=== PATIENT | male | born 1950 ===

== ENCOUNTER 2020-05-01 09:39 | Outpatient (CLI) | payer MEDICARE, SELFPAY ==
--- NOTE | 2020-05-01 09:48 | EST_ITS ---
Patient Info Name: Kathryn Cuevas Age: 69 years : 1950 Gender: Male Ht: 72 in Wt: 180 lbs BSA: 2.04 m2 Exam Date: 05/01/2020 10:07 AM Exam Location: [facility] Stress Patient Status: Outpatient Admit Date: 05/01/2020 Staff Ordering Physician: Veronica Trammell NP Attending Provider: Veronica Trammell NP Exercise Technologist: Pooja Polanco RDCS Exercise Physician: Lokesh Simon DO Exam Type: CA stress test treadmill Study Info Indications R42 - Dizziness and giddiness A treadmill exercise stress test was performed. Summary 1. 1. Negative Mode exercise stress test for ischemic ST changes by ECG criteria. 2. 2. Reduced functional capacity, achieving 6.5 METs of workload. 3. 3. Rapid HR response to exercise achieving 85% MPHR in first 1 minute and 30 seconds of exercise. 4. 4. Baseline hypertension with hypertensive response to exercise. 5. 5. Appropriate HR recovery at 1 minute post exercise. 6. 6. No imaging with stress testing. 7. 7. Patient informed of the above results. Protocol: Mode Stress ECG Details Stage: REST Duration (min): 4 min : 49 sec Speed (mph): 0.0 Grade (%): 0 HR (bpm): 68 SBP (mmHg): 143 DBP (mmHg): 84 METS: --- Stage: REST Duration (min): 7 min : 9 sec Speed (mph): 0.0 Grade (%): 0 HR (bpm): 75 SBP (mmHg): 143 DBP (mmHg): 84 METS: --- Stage: STAGE 1 Duration (min): 1 min : 0 sec Speed (mph): 1.7 Grade (%): 10 HR (bpm): 115 SBP (mmHg): 143 DBP (mmHg): 84 METS: --- Stage: STAGE 1 Duration (min): 2 min : 0 sec Speed (mph): 1.7 Grade (%): 10 HR (bpm): 137 SBP (mmHg): 143 DBP (mmHg): 84 METS: --- Stage: STAGE 1 Duration (min): 3 min : 0 sec Speed (mph): 1.7 Grade (%): 10 HR (bpm): 138 SBP (mmHg): 198 DBP (mmHg): 86 METS: --- Stage: STAGE 2 Duration (min): 1 min : 0 sec Speed (mph): 2.5 Grade (%): 12 HR (bpm): 149 SBP (mmHg): 198 DBP (mmHg): 86 METS: --- Stage: STAGE 2 Duration (min): 1 min : 0 sec Speed (mph): 2.5 Grade (%): 12 HR (bpm): 149 SBP (mmHg): 198 DBP (mmHg): 86 METS: --- Stage: RECOVERY Duration (min): 0 min : 59 sec Speed (mph): 0.0 Grade (%): 0 HR (bpm): 124 SBP (mmHg): 199 DBP (mmHg): 80 METS: --- Stage: RECOVERY Duration (min): 1 min : 59 sec Speed (mph): 0.0 Grade (%): 0 HR (bpm): 98 SBP (mmHg): 199 DBP (mmHg): 80 METS: --- Stage: RECOVERY Duration (min): 2 min : 59 sec Speed (mph): 0.0 Grade (%): 0 HR (bpm): 83 SBP (mmHg): 214 DBP (mmHg): 82 METS: --- Stage: RECOVERY Duration (min): 3 min : 59 sec Speed (mph): 0.0 Grade (%): 0 HR (bpm): 80 SBP (mmHg): 214 DBP (mmHg): 82 METS: --- Stage: RECOVERY Duration (min): 4 min : 59 sec Speed (mph): 0.0 Grade (%): 0 HR (bpm): 77 SBP (mmHg): 159 DBP (mmHg): 85
== END 2020-05-01 09:40 | disposition home or self-care (01) ==
LOC: ANHCARD 09:43
PROVIDERS: PCP Family Medicine; Visit Provider Nurse Practitioner
DX: R42 Dizziness and giddiness (principal)
CPT/HCPCS: 93017

== ENCOUNTER 2020-06-03 09:12 | Outpatient (CLI) | payer MEDICARE, SELFPAY ==
--- NOTE | 2020-07-09 17:17 | WPDHOMESLEEP ---
Sleep Study - Home Unattended Date of Study: 06/03/20 Ordering Provider: Veronica Trammell NP Interpreting Physician: Nereida Morillo MD Home Sleep Study Type: Apnea Link Air Height: 1.85 m Weight: 81.647 kg Body Mass Index: 23.7 Neck Circumference (inches): 16.5 [place]: 11 Reason for Sleep Study Excessive daytime sleepiness, unintended naps Sleep History Kathryn Cuevas is a 70 year old man who for the last year has started falling asleep in the afternoon and early evening unintentionally. He may sleep up to 6 hours during the day. Overall he feels worse after having slept during the day. He previously never napped during the day. Napping in the day causes him to awake often at night. He wakes up daily with headaches, neck stiffness, and constant fatigue. This is exacerbating his mental health issues. He has difficulty waking at the correct time in the morning. He rarely snores and it is rarely loud enough that others complain about it. He never awakens at night with heartburn, belching or coughing. He does not awaken from sleep feeling short of breath. He occasionally has trouble sleep with a cold. He does not wake up gasping for breath at night. He rarely has breathing problems at night observed by others. He does not sweat excessively at night. He rarely notices his heart pounding or beating irregularly night. He frequently falls asleep during the day, frequently involuntarily but never while driving and never while exerting physical effort. He does not have loss of muscle tone with strong emotion. He occasionally has daytime difficulties due to excessive sleepiness. He does not feel paralyzed on waking or falling asleep. He occasionally has vivid dreamlike scenes upon awakening or falling asleep. He is never a freight to go to sleep. He denies nightmares. He frequently remembers his dreams. He rarely has racing thoughts through his mind. He frequently feels sad, depressed and anxious. He came in muscular tension. He does not notice parts of his body jerking. He does not kick at night. He rarely has crawling and aching feelings in his legs at night. He does not have any kind of leg pain during the night. He does not have morning jaw pain and does not grind his teeth during sleep. He occasionally has bothered by pain during the day. He never is awakened by pain during the night. He occasionally wakes up feeling stiff in the morning, frequently with sore or achy muscles. He frequently wakes up with pain in his neck and spine. He has tremors, memory problems, concentration difficulties, fatigue, dizziness, daily morning headaches and depression. Normal bedtime has been midnight falling asleep within 5 minutes typically waking several times at night. When he wakes up he stays awake for 5 minutes. He will change position and reposition his pillow. He wakes in the morning at 8:00 a.m.. He does take naps as described in the afternoon and early evening. A short nap is not refreshing. He is usually drowsy on waking for an hour. He feels better in the afternoon compared other times of day. Habits: Never smoked tobacco. Caffeine 2 servings a day. Alcohol 1 per day. No recreational drugs. [facility] Past Medical History Medical History (Updated 07/09/20 @ 17:25 by Nereida Morillo MD) Attention deficit disorder (ADD) without hyperactivity Essential (primary) hypertension History of prostate cancer Hyperlipidemia Major depressive disorder, recurrent, unspecified Vitamin D deficiency, unspecified Surgical History Surgical History Status post radical cystoprostatectomy 2008 Family History Family History Father Family history of diabetes mellitus in first degree relative Other Hypertension Social History Social History Smoking status: Never smoker Alcohol int
[2020-07-09 17:29] VITALS: BMI 23.7
== END 2020-06-03 09:13 | disposition home or self-care (01) ==
LOC: ANHCSM 09:14
PROVIDERS: PCP Family Medicine; Visit Provider Nurse Practitioner
DX: G47.33 Obstructive sleep apnea (adult) (pediatric) (principal)
CPT/HCPCS: 95806

== ENCOUNTER 2021-05-28 09:31 | Outpatient (CLI) | payer MEDICARE, SELFPAY ==
--- NOTE | ~2021-05-28 | US_ITS ---
EXAMINATION: US carotid duplex BI DATE: 05/28/2021 11:36 INDICATION: Dizziness and giddiness. TECHNIQUE: Grayscale, color Doppler, and pulsed Doppler images of the cervical carotid arteries were obtained. The degree of vessel stenosis is placed in one of the following categories: normal, <50%, 5 0-69%, >=70% but less than near-occlusion, near-occlusion, or total occlusion. Note that percent sten osis relative to normal distal artery lumen diameter is indirectly measured from velocity measurement s as described by Reid, et al. Radiology 2003; 229:[id number]. COMPARISON: None. FINDINGS: RIGHT: The right common carotid artery (CCA) peak systolic velocity (PSV) is 100 cm/s. The right internal ca rotid artery (ICA) PSV is 70 cm/s. The right ICA end-diastolic velocity (EDV) is 22 cm/s. The right I CA/CCA PSV ratio is 1.4. Grayscale and color Doppler images yield an estimate of <50% diameter reduct ion from small amount of plaque in the ICA. The external carotid artery (ECA) PSV is 129 cm/s. There is antegrade flow in the right vertebral artery. LEFT: The left CCA PSV is 82 cm/s. The left ICA PSV is 91 cm/s. The left ICA EDV is 20 cm/s. The left ICA/C CA PSV ratio is 0.9. Grayscale and color Doppler images yield an estimate of <50% diameter reduction from minimal plaque in the ICA. The ECA PSV is 98 cm/s. There is antegrade flow in the left vertebral artery. IMPRESSION: 1. <50% stenosis in the right internal carotid artery. 2. <50% stenosis in the left internal carotid artery. Reviewed, dictated and finalized at location A. [facility]NER
--- NOTE | 2021-05-28 10:00 | ECHO_ITS ---
Patient Info Name: Kathryn Cuevas Age: 71 years : 1950 Gender: Male Ht: 73 in Wt: 178 lbs BSA: 2.04 m2 HR: 52 bpm BP: 134 / 84 mmHg Technical Quality: Fair Exam Date: 05/28/2021 10:20 AM Exam Location: [facility] Patient Status: Outpatient Admit Date: 05/28/2021 Staff Ordering Physician: Kelly Rosas NP Bench Assembler Battery: Maritza Keen RDCS Attending Provider: Kelly Rosas NP Referring Physician: Alison DAY; Exam Type: CA echo doppler color flow Study Info Indications - DIZZINESS GIDDINESS Complete two-dimensional, color flow and Doppler transthoracic echocardiogram is performed. Summary 1. Complete two-dimensional, color flow and Doppler transthoracic echocardiogram is performed. 2. Left ventricular chamber dimension is normal. 3. Left ventricular systolic function is normal, estimated at 60-65%. 4. The left ventricular diastolic function is grade II diastolic dysfunction. 5. E/e' 11 is mildly elevated. 6. Left atrial chamber dimension is mildly enlarged. 7. There is mild to moderate mitral valve regurgitation. 8. There is mild tricuspid valve regurgitation. 9. No pulmonary hypertension, estimated pulmonary arterial systolic pressure is 32 mmHg. Left Ventricle E/e' 11 is mildly elevated. Left ventricular chamber dimension is normal. Left ventricular systolic function is normal, estimated at 60-65%. The left ventricular diastolic function is grade II diastolic dysfunction. Right Ventricle Right ventricular chamber dimension is normal. Right ventricular systolic function is normal. Left Atria Left atrial chamber dimension is mildly enlarged. Right Atria Right atrial chamber dimension is normal. Aortic Valve The aortic valve is trileaflet. There is no aortic valve stenosis. There is no aortic valve regurgitation. Pulmonic Valve There is no pulmonic regurgitation. Mitral Valve There is no mitral valve stenosis. There is mild to moderate mitral valve regurgitation. Tricuspid Valve There is mild tricuspid valve regurgitation. No pulmonary hypertension, estimated pulmonary arterial systolic pressure is 32 mmHg. Pericardium/Pleural There is no pericardial effusion. Inferior Vena Cava Normal inferior vena cava with >50% collapse upon inspiration consistent with normal right atrial pressure, 5 mmHg. Aorta The aortic root size at the sinus of Valsalva is normal. Left Ventricular Outflow Tract Name Value Normal LVOT 2D LVOT Diameter 2.0 cm LVOT Doppler LVOT Peak Gradient 5 mmHg LVOT Mean Gradient 3 mmHg LVOT VTI 23 cm LVOT VTI/AV VTI Ratio 0.8 LVOT Stroke Volume 72 ml LVOT CO 14.9 l/min LVOT CI 7.3 l/min/m2 Pulmonic Valve Name Value Normal PV Dop
== END 2021-05-28 09:32 | disposition home or self-care (01) ==
LOC: ANHCARD 09:33
PROVIDERS: PCP Family Medicine; Visit Provider Nurse Practitioner Family
DX: R42 Dizziness and giddiness (principal); I65.23 Occlusion and stenosis of bilateral carotid arteries; I34.0 Nonrheumatic mitral (valve) insufficiency; I36.1 Nonrheumatic tricuspid (valve) insufficiency
CPT/HCPCS: 93306; 93880

== ENCOUNTER 2022-01-22 07:51 | Outpatient (CLI) | payer MEDICARE, SELFPAY ==
--- NOTE | 2022-02-22 21:41 | WPDSLEEPSTUD ---
Sleep Study Date of Study: 01/22/22 Ordering Provider: Nereida Morillo MD Interpreting Physician: Nereida Morillo MD Sleep Study Type: Split Polysomnogram Height: 1.85 m Weight: 82.1 kg Body Mass Index: 23.8 Neck Circumference (inches): 16.5 [place]: 6 Reason for Sleep Study * Hypersomnia * 06/03/2020 [facility] -?home sleep test on June 03, 2020 shows at least mild obstructive sleep apnea with an AHI of 7.2,?desaturation to 87% and snoring.? The patient has?hypertension and depression.?He did not choose to be treated at the time, and the interval is too long at this point to get PAP therapy. * 05/28/2021 echo : ?Left ventricular systolic function is normal, estimated at 60-65%. Sleep History Kathryn Cuevas is a 71-year-old man with a history of hypersomnia. He reports that he can fall asleep any time that he is seated and especially if he reclines. He had a home sleep test in June 03, 2020 which showed mild obstructive sleep apnea. He did not decide to get treated at the time. He has had worsening cognitive function. He has both memory loss and difficulty focusing. He decided that he does want to have treatment to see if this can help his brain function.? He may nap up to 6 hours during the day.? Overall he feels worse after having slept during the day.? He previously never napped during the day.? Napping in the day causes him to awake often at night.? He wakes up daily with headaches, neck stiffness, and constant fatigue.? This is exacerbating his mental health issues.? He has difficulty waking at the correct time in the morning.? He rarely snores and it is rarely loud enough that others complain about it.? He never awakens at night with heartburn, belching or coughing.? He does not awaken from sleep feeling short of breath.? He occasionally has trouble sleep with a cold.? He does not wake up gasping for breath at night.? He rarely has breathing problems at night observed by others.? He does not sweat excessively at night.? He rarely notices his heart pounding or beating irregularly night.? He frequently falls asleep during the day, frequently involuntarily but never while driving and never while exerting physical effort.? He does not have loss of muscle tone with strong emotion.? He occasionally has daytime difficulties due to excessive sleepiness.? He does not feel paralyzed on waking or falling asleep.? He occasionally has vivid dreamlike scenes upon awakening or falling asleep.? He is never a freight to go to sleep.? He denies nightmares.? He frequently remembers his dreams.? He rarely has racing thoughts through his mind.? He frequently feels sad, depressed and anxious.? He came in muscular tension.? He does not notice parts of his body jerking.? He does not kick at night.? He rarely has crawling and aching feelings in his legs at night.? He does not have any kind of leg pain during the night.? He does not have morning jaw pain and does not grind his teeth during sleep.? He occasionally has bothered by pain during the day.? He never is awakened by pain during the night.? He occasionally wakes up feeling stiff in the morning, frequently with sore or achy muscles.? He frequently wakes up with pain in his neck and spine.? He has tremors, memory problems, concentration difficulties, fatigue, dizziness, daily morning headaches and depression. Normal bedtime has been midnight falling asleep within 5 minutes typically waking several times at night.? When he wakes up he stays awake for 5 minutes.? He will change position and reposition his pillow.? He wakes in the morning at 8:00 a.m..? He does take naps as described in the afternoon and early evening.? A short nap is not refreshing.? He is usually drowsy on waking for an hour.? He feels better in the afternoon compared other times of day. Habits: ? Never smoked tobacco.? Caffeine 2 servings a day.? Alcohol 1 per day.? No recreational drugs. PMFSH Past Medical History Medical History (Reviewed 01/22/22 @ 11
[2022-02-24 15:56] VITALS: BMI 23.8
== END 2022-01-23 06:59 | disposition home or self-care (01) ==
LOC: ANHCSM 07:53
PROVIDERS: PCP Family Medicine; Visit Provider Internal Medicine Critical Care Medicine
DX: G47.19 Other hypersomnia (principal); G47.33 Obstructive sleep apnea (adult) (pediatric)
CPT/HCPCS: 95810; 95811

== ENCOUNTER → 2023-06-07 09:21 | Outpatient (CLI) | payer MEDICARE, SELFPAY ==
--- NOTE | ~2023-06-07 | CT_ITS ---
Non-contrast Head CT History: Amnesia Technique: Axial non-contrast imaging of the brain was performed. Dose reduction technique was used on this scan by utilizing automated exposure control and iterative reconstruction technique. The dose -length product (DLP) was 726.40 mGy-cm. Findings: There is no evidence of intracranial hemorrhage, mass lesion, or acute infarct. Brain par enchyma appears normal. The ventricles and subarachnoid spaces are normal in size. The calvarium ap pears normal. The visualized paranasal sinuses and mastoid air cells are clear. Impression: No significant abnormality seen. Reviewed, dictated and finalized at location . NG ROOM ATTENDANT CAFETERIA Impression: No significant abnormality seen.
== END ==
PROVIDERS: PCP Nurse Practitioner Family; Visit Provider Nurse Practitioner Family
DX: R41.3 Other amnesia (principal)
CPT/HCPCS: 70450

== ENCOUNTER 2024-06-12 12:07 | Observation (INO) | payer MEDICARE, OTHER, SELFPAY ==
[2024-06-12] VITALS (10 sets, daily range): BP systolic 104–129; BP diastolic 61–80; PULSE 51–90; RESP 14–16; TEMP 36.3–36.6; O2SAT 99–100; BMI 22.5; BMI 22.8
--- NOTE | ~2024-06-12 | XR_ITS ---
EXAMINATION: XR chest 2V DATE: 06/12/2024 12:47 INDICATION: Chest pain and shortness of breath TECHNIQUE: PA and lateral views of the chest were obtained. COMPARISON: Chest radiograph dated 08/02/2011 FINDINGS: The lungs are clear with no focal airspace opacities, pulmonary edema, pleural effusion or pneumothor ax. The cardiomediastinal silhouette is normal. Postoperative change of the lower cervical anterior s omari fusion with interbody bone graft cage and anterior plate-screw fixation. IMPRESSION: 1. No acute cardiopulmonary disease. Reviewed, dictated and finalized at location B. [employer]
--- NOTE | 2024-06-12 12:14 | ECG_ITS ---
Test Date: 2024-06-12 12:24:35 Measurements Intervals [place] Rate: 59 P: 48 CT: 176 QRS: 43 QRSD: 82 T: 81 QT: 358 QTc: 356 Interpretive Statements SINUS BRADYCARDIA NONSPECIFIC T-WAVE ABNORMALITY No previous ECG available for comparison Electronically Signed On 06-12-2024 15:33:44 COOKIE PADDER by Anthony Naylor M.D.
[2024-06-12 12:40] LABS: Basophils Absolute Auto 0.1 K/mm3 (0.0-0.1); Basophils Percent Auto 0.9 % (0.2-1.2); Eosinophils Absolute Auto 0.4 K/mm3 (0-0.3); Eosinophils Percent Auto 5.1 % (0-4.4); Hematocrit 42.9 % (42.0-52.0); Hemoglobin 15.2 g/dL (14.0-18.0); Immature Granulocyte Absolute 0.02 K/mm3 (0.00-0.031); Immature Granulocyte Percent A 0.3 % (0-0.5); Lymphocytes Absolute Auto 2.17 K/mm3 (0.9-3.2); Mean Corpuscular HGB Conc 35.4 g/dl (32-36); Mean Platelet Volume 9.8 fl (7.4-10.4); Monocytes Absolute Auto 0.6 K/mm3 (0.1-0.6); Monocytes Percent Auto 8.6 % (2.6-8.5); Neutrophils Absolute Auto 3.8 K/mm3 (1.3-6.7); Neutrophils Percent Auto 54.1 % (45.5-73.1); Platelet Count Result 217 k/mm3 (150-375); Red Blood Count 4.47 M/mm3 (4.6-6.20); Red Cell Distribution Width 11.7 % (11.5-14.5)
[2024-06-12 12:50] LABS: Alanine Aminotransferase 24 U/L (6-50); Albumin Level 4.5 g/dL (3.5-5.1); Alkaline Phosphatase 78 U/L (38-126); Anion Gap 8 mmol/L (4-12); Aspartate Amino Transferase 32 U/L (17-59); Bilirubin,Total 0.9 mg/dL (0.2-1.3); Blood Urea Nitrogen 16 mg/dL (9-20); Calcium 9.3 mg/dL (8.4-10.2); Carbon Dioxide 31 mmol/L (22-30); Chloride 103 mmol/L (98-107); Estimated CRCL calculation 76 ml/min; Estimated Glomerular Filt Rate > 60; Glucose 120 mg/dL (65-110); Lipase 92 U/L (23-300); Potassium 4.4 mmol/L (3.4-5.0); Sodium 142 mmol/L (137-145)
[2024-06-12 12:58] LABS: Prothrombin Time 13.6 Seconds (11.1-14.7)
[2024-06-12 12:59] LABS: Partial Thromboplastin Time 25.7 Seconds (22.3-36.8)
[2024-06-12 13:01] LABS: Troponin I < 0.012 ng/mL (0.000-0.034)
--- NOTE | 2024-06-12 15:00 | ECG_ITS ---
Test Date: 2024-06-12 15:05:51 Measurements Intervals [place] Rate: 67 P: 16 MO: 176 QRS: 17 QRSD: 86 T: 67 QT: 390 QTc: 414 Interpretive Statements SINUS RHYTHM NONSPECIFIC T-WAVE ABNORMALITY Compared to ECG 06/12/2024 12:24:35 NO SIGNIFICANT CHANGES Electronically Signed On 06-12-2024 15:38:36 DRAFTER PATENT by Anthony Naylor M.D.
[2024-06-12 15:45] LABS: Troponin I < 0.012 ng/mL (0.000-0.034)
--- NOTE | 2024-06-12 15:49 | ED_ITS ---
HPI - Chest Pain General Chief Complaint: Chest Pain Stated Complaint: i think i had a heart attack tuesday Time Seen by Provider: 06/12/24 14:45 Source: patient and family Mode of arrival: ambulatory Limitations: no limitations History of Present Illness HPI narrative: Patient with history of covid with sequela/complications/long covid (had covid toes), COPD (not on supplemental O2) and pneumonia presents with concern he had a heart attack on Tuesday, 06/10. States was shoveling snow and felt like he was being hit with a hammer in the middle of his chest associated with intense difficulty breathing. States it was the worst pain he had ever experienced. He stopped shoveling snow but the pain did persist throughout the evening and overnight and into Tuesday. Then resolved without recurrence. Delayed presentation because he thought it might be related to his long covid. In addition, he was recently diagnosed with Alzheimers within the last 3-4 weeks and this new health information has been hard for him to process given he worked so hard for so long.... PCP Lluvia. They took a home covid test and it was negative. When he told his sister, a nurse, about his symptoms however, she was concerned and advised he present for cardiac work up. States this has never happened before. Saw a analysis tester many years ago. [place] short of breath during the incident, difficult to get air in. No nausea/vomiting or diaphroesis. No chest pain now. No recent cough. No edema. Had a stress test years ago, no previous cardiac cath. = Cardiac risk factors: + HTN (on valsartan), + HLD. No prior AR/CVA, non diabetic. Non smoker. Not obese. No family history of cardiac <65yo. = also notes that over the summer over a period of several months he had 4 instances of syncope, unclear etiology, no work up for this. Related Data Home Medications ?Medication ?Instructions ?Recorded ?Confirmed ?Last Taken ?Type duloxetine 60 mg capsule,delayed 60 mg PO DAILY 01/09/24 06/12/24 06/12/24 08:00 History release 60 mg donepezil 5 mg tablet 5 mg PO DAILY 06/12/24 06/12/24 06/12/24 08:00 History 5 mg Allergies Allergy/AdvReac Type Severity Reaction Status Date / Time Penicillins Allergy Mild stiff Verified 06/12/24 12:09 joints PMFSH Past Medical History Medical History Alzheimer disease COVID toes COVID-19 long hauler Pneumonia COPD (chronic obstructive pulmonary disease) Prostate cancer Memory loss Erectile dysfunction Lumbar back pain with radiculopathy affecting right lower extremity Attention deficit disorder (ADD) without hyperactivity Essential (primary) hypertension Hyperlipidemia Major depressive disorder, recurrent, unspecified Vitamin D deficiency, unspecified Surgical History Surgical History (Updated 06/12/24 @ 23:19 by Mary Jo Sin PA-C) History of radical prostatectomy (2008) History of cervical discectomy Family History Family History Father Family history of diabetes mellitus in first degree relative Other Hypertension Social History Social History (Updated 06/12/24 @ 23:20 by Mary Jo Sin PA-C) Social History: Surrogate medical decision maker: Alanna Floyder, spouse. Code status: Full code. Smoking status: Never smoker Alcohol intake: never Substance use: never Substance use type: does not use Do You Feel Safe in your Home?: Yes Lack of Transportation: No Lack of Food: Never True Current Housing: I Have Housing Concerned About Future Housing: No Difficulty Paying Gas/Electric Bills: No Difficulty Paying for Meds: No Currently Unemployed: No Education: Master's Degree or Higher Difficulty w/ Childcare or Family Care: No Living arrangements: with family Occupation/Education: retired Spiritual care concerns: No Agree to blood products: Yes Exam 2 Narrative: GENERAL: Well-appearing, well-nourished, and in no acute distress. HEAD: Normocephalic, atraumatic. EYES: Non injected, non icteric ENT: Nares clear, no rhinorrhea or epistaxis. NECK: Supple. CHEST: Speaking in full sentences. No respiratory distress. Lungs clear to auscultation without wheezes, crackles, bronchospasm. HEART: Regular rate and rhythm. . ABDOMEN: Soft, nondistended. EXTREMITIES: Normal range of motion. No lower extremity edema. SKIN: Warm, dry, no rash. NEURO: No focal deficits. Alert and oriented x3. PSYCH: Congruent mood and affect, slightly flat. Speaks at appropriate volume/rate. Minimal facial expressions. Course Vital Signs Vital signs: Vital Signs Temperature 97.9 F 06/12/24 12:24 Pulse Rate 80 06/12/24 12:24 Respiratory Rate 14 06/12/24 12:24 Blood Pressure 104/71 06/12/24 12:24 Pulse Oximetry 100 06/12/24 12:24 Temperature 98 F 06/13/24 07:35 Pulse Rate 70 06/13/24 08:00 Respiratory Rate 14 06/13/24 07:35 Blood Pressure 121/82 06/13/24 07:35 Pulse Oximetry 100 06/13/24 07:35 Oxygen Delivery Room Air 06/13/24 08:00 MDM - Chest Pain MDM Narrative Medical decision making narrative: Patient presents with concern he had a heart attack on Tuesday06/10/24. He was shoveling snow and experienced intense chest pain in the middle of his chest associated with significant shortness of breath. Lasted into the evening and the next morning then resolved without recurrence. History of COPD, covid long haul, and recent diagnosis of Alzheimer, all contributing to delay in presentation. In the emergency department they are afebrile with vital signs within normal limits. HEART SCORE History 2 highly suspicious 1 moderately suspicious 0 slightly suspicious History score [address] depression/elevation not due to LBBB, LVH, or digoxin [address] depression but LBBB, LVH, nonspecific repolarization changes 0 normal ECG score 1 (T wave inversions) Age 2 >/= 65 1 45-64 0 <45 Age score 2 Risk factors (HTN, hypercholesterolemia, DM, obesity with BMI >30, current smoker or cessation </=3mo), positive fam hx with parent or sibling with CVD before age 65, atherosclerotic disease (prior AR, PCI/CABG, CVA/TIA, or peripheral arterial disease) 2 >/= 3 risk factors or history of atherosclerotic dz 1 - 1-2 risk factors 0 no known risk factors Risk factor score 1 (HTN, HLD) Initial Troponin 2 >3 times normal limit 1 1-3 times normal limit 0 less than or equal to normal limit Troponin score 0. Total HEART Score 5 , high risk, 12-65% 30 day MACE. 2nd troponin negative. Dimer negative. I did discuss with patient the recommendation and advised the need for admission. He does oblige and verified understanding. Discussed patient with on-call hospitalist MILO English; will be IMU for high HEART score. In addition, given his risk, he will be made NPO at midnight in consideration of potential cardiac catheterization although will defer starting heparin at this time. Patient discussed with on-call non historic clothing and costume maker Dr Neal at approximately 17:20. Differential Diagnosis Differential diagnosis: Likely stable angina, unstable angina pectoris, atypical chest pain, st elevation myocardial infarction, costochondritis, chest pain, biliary colic and other (COPD exacerbation (resolved), bronchospasm/cold exposure bronchospasm (resolved); anxiety) Lab Data Attestation: I reviewed the patient's lab results. 06/12/24 12:27 06/13/24 03:49 Labs: Lab Results 06/12/24 06/12/24 06/12/24 Range/Units 12:26 12:27 15:20 WBC 7.0 (4.5-10.0) K/mm3 RBC 4.47 L (4.6-6.20) M/mm3 Hgb 15.2 (14.0-18.0) g/dL Hct 42.9 (42.0-52.0) % MCV 96.0 (80-100) fl MCH 34.0 (26-34) pg MCHC 35.4 (32-36) g/dl RDW 11.7 (11.5-14.5) % Plt Count 217 (150-375) k/mm3 MPV 9.8 (7.4-10.4) fl Immature Gran % (Auto) 0.3 (0-0.5) % Neut % (Auto) 54.1 (45.5-73.1) % Lymph % (Auto) 31.0 (18.3-44.2) % [place] % (Auto) 8.6 H (2.6-8.5) % Eos % (Auto) 5.1 H (0-4.4) % Baso % (Auto) 0.9 (0.2-1.2) % Lymph # (Auto) 2.17 (0.9-3.2) K/mm3 [place] # (Auto) 0.6 (0.1-0.6) K/mm3 Eos # (Auto) 0.4 H (0-0.3) K/mm3 Baso # (Auto) 0.1 (0.0-0.1) K/mm3 Abs Immat Gran (auto) 0.02 (0.00-0.031) K/mm3 Absolute Neuts (auto) 3.8 (1.3-6.7) K/mm3 Absolute Nucleated RBC 0.000 (0.0-0.012) K/mm3 Nucleated RBC % 0.0 (0.0-0.2) % PT 13.6 (11.1-14.7) Seconds INR 1.0 APTT 25.7 (22.3-36.8) Seconds D-Dimer 0.36 (<0.48) ug/mL Sodium 142 (137-145) mmol/L Potassium 4.4 (3.4-5.0) mmol/L Chloride 103 (98-107) mmol/L Carbon Dioxide 31 H (22-30) mmol/L Anion Gap 8 (4-12) mmol/L BUN 16 (9-20) mg/dL Creatinine 0.82 (0.7-1.3) mg/dL Estim Creat Clear Calc 76 ml/min Estimated GFR > 60 (59 - ) Glucose 120 H (65-110) mg/dL Calcium 9.3 (8.4-10.2) mg/dL Magnesium 1.9 (1.6-2.3) mg/dL Total Bilirubin 0.9 (0.2-1.3) mg/dL AST 32 (17-59) U/L ALT 24 (6-50) U/L Alkaline Phosphatase 78 (38-126) U/L Troponin I < 0.012 < 0.012 (0.000-0.034) ng/mL Total Protein 7.0 (6.3-8.2) g/dL Albumin 4.5 (3.5-5.1) g/dL Lipase 92 (23-300) U/L Imaging Data Radiologist's impression: Impressions Chest X-Ray 06/12/24 12:50 IMPRESSION: 1. No acute cardiopulmonary disease. ECG Data EKG #1: Attestation: I personally reviewed and interpreted this ECG as follows: ECG completion date: 06/12/24 ECG completion time: 12:24 Prior ECG tracings: available for review (from 10/07/2014 (approximately a decade ago)) Interpretation: Sinus bradycardia at a rate of 59 beats per minute. ND interval 176. QRS 82. QT/QTC 358/57. Good R-wave progression across the precordial leads. Patient does have T-wave inversion versus biphasic T-waves in V4 as well as a T-wave inversion in V5 and V6. These are new. EKG #2: Attestation: I personally reviewed and interpreted this ECG as follows: ECG completion date: 06/12/24 ECG completion time: 15:56 Interpretation: Normal sinus rhythm at a rate of 67 beats per minute. ND interval 176. QRS 86. QT/QTC 390/406. Patient has biphasic T-wave in V4 and V5 as well as V6. Good R-wave progression across the precordial leads. Discharge Plan Discharge Clinical Impression: Angina pectoris syndrome Patient Disposition: Still a Patient Condition: Stable
[2024-06-12 16:06] LABS: Magnesium 1.9 mg/dL (1.6-2.3)
[2024-06-12 16:28] LABS: D Dimer 0.36 ug/mL (<0.48)
--- NOTE | 2024-06-12 18:00 | PC.NURSE ---
lab called to add on ordered A1C.
--- NOTE | 2024-06-12 18:45 | P.HP_ITS ---
H&P: HPI History of Present Illness Date/Time: 06/12/24 18:45 Chief Complaint: I think I had a heart attack on Tuesday. Narrative: This is a pleasant 74-year-old male with hypertension and hyperlipidemia who pre sented to the emergency department via private vehicle for evaluation; I think I had a heart attack on Tuesday. The patient provides the following history. Tuesday afternoon he was shoveled and did not have any issues. That night he was awakened from sleep with a heaviness in the substernal region associated with shortness of breath. It lasted for several hours before resolving without intervention. He has never had similar symptoms and he has not had a recurrence of his symptoms since that time. He apparently spoke with his and children about it today in the encouraged him to come in for evaluation. Again, he denies that the symptoms occurred while he was shoveling and he has not had any exertional chest pain. He denies indigestion, bloating, belching, nausea, and vomiting. He also denies syncope, near syncope, cough, lower extremity edema, and calf pain. In the ED: He was afebrile on arrival with stable vital signs. CMP and CBC were pretty unremarkable though is random glucose was a bit elevated at 120. Initial troponin was negative. EKG showed sinus bradycardia nonspecific T-wave abnormalities. Chest x-ray was clear. He was given aspirin 324 mg is being admitted in this setting for close monitoring and Cardiology consultation. Review of Systems Review of Systems: 12 systems were reviewed and are negative except for as per HPI. [facility] Past Medical History Medical History Prostate cancer Memory loss Erectile dysfunction Lumbar back pain with radiculopathy affecting right lower extremity Attention deficit disorder (ADD) without hyperactivity Essential (primary) hypertension Hyperlipidemia Major depressive disorder, recurrent, unspecified Vitamin D deficiency, unspecified Surgical History Surgical History (Updated 06/12/24 @ 23:19 by Mary Jo Sin PA-C) History of radical prostatectomy (2008) History of cervical discectomy Family History Family History Father Family history of diabetes mellitus in first degree relative Other Hypertension Social History Social History (Updated 06/12/24 @ 23:20 by Mary Jo Sin PA-C) Social History: Surrogate medical decision maker: Alanna Cuevas, spouse. Code status: Full code. Smoking status: Never smoker Alcohol intake: never Substance use: never Substance use type: does not use Do You Feel Safe in your Home?: Yes Lack of Transportation: No Lack of Food: Never True Current Housing: I Have Housing Concerned About Future Housing: No Difficulty Paying Gas/Electric Bills: No Difficulty Paying for Meds: No Currently Unemployed: No Education: Master's Degree or Higher Difficulty w/ Childcare or Family Care: No Living arrangements: with family Occupation/Education: retired Spiritual care concerns: No Agree to blood products: Yes Meds Home Medications and Allergies Home Medications ?Medication ?Instructions ?Recorded ?Confirmed ?Type valsartan 160 mg tablet 160 mg PO DAILY #90 tabs 10/10/23 06/12/24 Rx duloxetine 60 mg capsule,delayed 60 mg PO DAILY 01/09/24 06/12/24 History release atorvastatin 20 mg tablet 20 mg PO QHS #90 tabs 01/23/24 06/12/24 Rx donepezil 5 mg tablet 5 mg PO DAILY 06/12/24 06/12/24 History Allergies Allergy/AdvReac Type Severity Reaction Status Date / Time Penicillins Allergy Mild stiff Verified 06/12/24 12:09 joints Vital Signs Vital Signs - 24 hr 06/12/24 12:24 06/12/24 14:21 06/12/24 14:24 Temperature 97.9 F Pulse Rate 80 69 Respiratory Rate 14 16 Blood Pressure 104/71 124/74 Pulse Oximetry 100 100 Oxygen Delivery Room Air 06/12/24 17:58 Temperature Pulse Rate 70 Respiratory Rate 16 Blood Pressure 117/80 Pulse Oximetry 100 Oxygen Delivery Exam Narrative: General: Well-developed, nontoxic-appearing male in the semi-Chambers position in bed. Weight: 70.5 kg. BMI: 22.8. HEENT: PERRL, EOMI. Sclera anicteric. Oral mucosa moist. Oropharynx clear. Neck: Supple. Respiratory: Lungs are clear to auscultation bilaterally. Cardiovascular: Regular rate and rhythm with S1-S2. Chest: No tenderness to palpation over the chest wall. Gastrointestinal: Abdomen is soft, nontender, and nondistended with positive bowel sounds. Skin: Warm and dry. No rash or lesions on limited exam. Extremities: No cyanosis, clubbing, or edema. Radial and pedal pulses intact. Neurological: Alert. Cranial nerves 2-12 are grossly intact. No gross focal deficits to casual conversation. Psychiatric: Pleasant and cooperative with normal mood and affect. H&P: Results Labs Labs: Short CBC 06/12/24 Range/Units 12:27 WBC 7.0 (4.5-10.0) K/mm3 Hgb 15.2 (14.0-18.0) g/dL Hct 42.9 (42.0-52.0) % Plt Count 217 (150-375) k/mm3 BMP 06/12/24 12:27 Sodium 142 Potassium 4.4 Chloride 103 Carbon Dioxide 31 H BUN 16 Creatinine 0.82 Glucose 120 H Calcium 9.3 Cardiac Enzymes 06/12/24 06/12/24 Range/Units 12:27 15:20 Troponin I < 0.012 < 0.012 (0.000-0.034) ng/mL Liver Function 06/12/24 Range/Units 12:27 Total Bilirubin 0.9 (0.2-1.3) mg/dL AST 32 (17-59) U/L ALT 24 (6-50) U/L Alkaline Phosphatase 78 (38-126) U/L Albumin 4.5 (3.5-5.1) g/dL Impressions Chest X-Ray 06/12/24 12:50 IMPRESSION: 1. No acute cardiopulmonary disease. Assessment and Plan Assessment and plan (1) Chest pain: Code(s): R07.9 - Chest pain, unspecified Status: Acute (2) Essential (primary) hypertension: Code(s): I10 - Essential (primary) hypertension Status: Chronic (3) Hyperlipidemia: Qualifiers: Hyperlipidemia type: unspecified Qualified Code(s): E78.5 - Hyperlipidemia, unspecified Code(s): E78.5 - Hyperlipidemia, unspecified Status: Chronic Plan The patient presented to the emergency department for evaluation of chest pain as detailed in HPI. Labs, imaging, EKG, and all reports were personally reviewed. Initial troponin was normal an EKG shows some nonspecific findings. this story provided to me is atypical for cardiac pain as he was able to shovel that day without issue. He was awakened from sleep that night with the pain which could be musculoskeletal in etiology, perhaps costochondritis, from all of the shoveling he had done that day. Pulmonary embolism and GI etiologies seem less likely. Nonetheless he does have risk factors for heart disease in the ED physician consulted Cardiology for their opinion. He will be NPO after midnight for possible stress test tomorrow. Blood pressures were reviewed and they are stable. Check fasting glucose as his random glucose was a bit elevated. His home medications will be reviewed and resumed as appropriate. Findings and treatment plan were discussed with the patient. Questions were solicited and answered to satisfaction. The patient's medical management [facility] Quality VTE Prophylaxis VTE prophylaxis: pharmacologic ordered The patient has been admitted under observation status. Hospitalist MIPS Advance Care Plan I have confirmed that the patient's Advanced Care Plan is present, code status is documented, or surrogate decision maker is listed in patient medical record.: Yes Medication Reconciliation I have utilized all available resources to obtain, update and review the patients current medications (includes all prescriptions, OTC, herbals, cannabis, and nutritional supplements).: Yes
--- NOTE | 2024-06-12 19:42 | ADMGEN ---
This patient, Kathryn Cuevas, was admitted to IMU Room 206-01. Patient/family oriented to hospital policies and general routines including ID bracelet, bed and alarms, visiting hours, pain management, procedures, bathroom and other care routines, personal items, smoking policy, room service/diet, and visiting hours. Information on how to activate the Rapid Response Team has been discussed. Patient/Family are encouraged to report perceived risks to care and to ask questions if they do not understand what they are told or what they should do.
[2024-06-12 20:23] LABS: Troponin I < 0.012 ng/mL (0.000-0.034)
[2024-06-12 21:33] LABS: Hemoglobin A1C 5.3 % (<5.7)
[2024-06-13] VITALS (9 sets, daily range): BP systolic 111–121; BP diastolic 71–82; PULSE 53–70; RESP 14; TEMP 36.3–36.6; O2SAT 98–100
[2024-06-13 04:30] LABS: Anion Gap 3 mmol/L (4-12); Blood Urea Nitrogen 16 mg/dL (9-20); Calcium 8.6 mg/dL (8.4-10.2); Carbon Dioxide 31 mmol/L (22-30); Chloride 103 mmol/L (98-107); Cholesterol 133 mg/dL (0-200); Estimated CRCL calculation 76 ml/min; Estimated Glomerular Filt Rate > 60; Glucose 91 mg/dL (65-110); HDL Direct 47 mg/dL; Magnesium 1.9 mg/dL (1.6-2.3); Sodium 137 mmol/L (137-145); Triglycerides 101 mg/dL (<150)
[2024-06-13 04:40] LABS: LDL Cholesterol Direct 61 mg/dL
--- NOTE | 2024-06-13 08:14 | P.CONCA_ITS ---
Assessment and Plan Assessment and plan (1) Chest pain: Code(s): R07.9 - Chest pain, unspecified Status: Acute Plan 74-year-old man with an episode of chest pain that awakened him from sleep 2 days prior to admission. He was doing some snow shoveling earlier in the day and the symptoms as he described them have a obvious or very suspicious pleuritic quality to it. This probably has to do with pectoral muscle strain with snow shoveling. It is very reassuring that 48 hours after the event his electrocardiogram as well as his troponin levels are completely normal. In addition to this he describes a very active lifestyle being able to run for 5 miles daily for exercise and fitness and does not have any symptoms of an ischemic nature to when he exerts at this level. In my opinion this does not merit any further ischemia workup and he can be discharged to home. Please call me if you have any questions regarding this situation or my opinion Catalino Neal MD [facility] History of Present Illness History of Present Illness Consult date/time: 06/13/24 08:14 Reason For Visit: Angina/ HEART score 5 Narrative: This is a 74-year-old man that I am seeing at the request of the hospitalist because of chest pain. The patient is not known to have any cardiac problems before this and came to the emergency room last evening because of an incident of chest pain that happened on Tuesday. The history that he provides his that he was shoveling snow on Tuesday after the recent snowstorm. He had no difficulty or symptoms while he was doing this. Later in the day he was feeling well. He went to bed that night and was awakened after he went to sleep with some severe chest pain he describes this as a severe pain that was going from the right to the left side of his chest throughout the anterior precordium. He did notice that the pain was much worse with are respiratory effort 0 with twisting his body to try to get up out of bed. He was in extreme pain with after he tried to get to bed he went to the floor that he got himself down stairs to his couch and spent the rest of the night down there. By the next morning he was feeling better. He reported the symptoms to his and was otherwise not concerned about his cardiac status. He spoke to his daughter who apparently is a nurse in [place] who became alarmed when she heard this story and instructed him to come to the hospital. That explains why he came to the emergency room a 48 hours after the symptoms. His evaluation in the emergency room was essentially unremarkable. His electrocardiograms looked normal and his troponin levels are normal. He does not have any exertional symptoms. In fact he says he runs regularly for exercise 5 miles in the morning. He does not provoke any chest pain when he runs like this. He does not have any symptoms of palpitations orthopnea PND or edema. He does have hypertension and dyslipidemia both of which are treated medically. There is no family history of premature ischemic heart disease. He did have some noninvasive evaluation back in 2019 in 2020 according to the records. The records of him having had an echocardiogram, and event monitor and a stress test all of which were unremarkable. He can not remember why these were performed. Review of Systems 2 Constitutional: Constitutional: Reports no additional constitutional complaints Eyes: Eyes: Reports no additional eye complaints ENT: Reports system reviewed and no additional complaints, except as documented Cardiovascular: Cardiovascular: Reports as per HPI and Reports chest pain Respiratory: Respiratory: Reports no additional respiratory complaints Gastrointestinal: Gastrointestinal: Reports no additional gastrointestinal complaints Musculoskeletal: Musculoskeletal: Reports no additional musculoskeletal complaints Integumentary/Breasts: Skin/Breast: Reports system reviewed and no additional complaints, except as docu Neurologic: Reports system reviewed and no additional complaints, except as documented Endocrine: Endocrine: Reports no additional endocrine complaints Hematologic/Lymphatic: Hematologic/Lymphatic: Reports no additional hematologic/lymphatic complaints Allergic/Immunologic: Allergic/Immunologic: Reports no additional allergic/immunologic complaints PMFSH Past Medical History Medical History Prostate cancer Memory loss Erectile dysfunction Lumbar back pain with radiculopathy affecting right lower extremity Attention deficit disorder (ADD) without hyperactivity Essential (primary) hypertension Hyperlipidemia Major depressive disorder, recurrent, unspecified Vitamin D deficiency, unspecified Surgical History Surgical History (Updated 06/12/24 @ 23:19 by Mary Jo Sin PA-C) History of radical prostatectomy (2008) History of cervical discectomy Family History Family History Father Family history of diabetes mellitus in first degree relative Other Hypertension Social History Social History (Updated 06/12/24 @ 23:20 by Mary Jo Sin PA-C) Social History: Surrogate medical decision maker: Alanna Cuevas, spouse. Code status: Full code. Smoking status: Never smoker Alcohol intake: never Substance use: never Substance use type: does not use Do You Feel Safe in your Home?: Yes Lack of Transportation: No Lack of Food: Never True Current Housing: I Have Housing Concerned About Future Housing: No Difficulty Paying Gas/Electric Bills: No Difficulty Paying for Meds: No Currently Unemployed: No Education: Master's Degree or Higher Difficulty w/ Childcare or Family Care: No Living arrangements: with family Occupation/Education: retired Spiritual care concerns: No Agree to blood products: Yes Meds Home Medications and Allergies Home Medications ?Medication ?Instructions ?Recorded ?Confirmed ?Type valsartan 160 mg tablet 160 mg PO DAILY #90 tabs 10/10/23 06/12/24 Rx duloxetine 60 mg capsule,delayed 60 mg PO DAILY 01/09/24 06/12/24 History release atorvastatin 20 mg tablet 20 mg PO QHS #90 tabs 01/23/24 06/12/24 Rx donepezil 5 mg tablet 5 mg PO DAILY 06/12/24 06/12/24 History Allergies Allergy/AdvReac Type Severity Reaction Status Date / Time Penicillins Allergy Mild stiff Verified 06/12/24 12:09 joints Vital Signs Vital Signs - 24 hr 06/12/24 12:24 06/12/24 14:21 06/12/24 14:24 Temperature 36.6 C Pulse Rate 80 69 Respiratory Rate 14 16 Blood Pressure 104/71 124/74 Pulse Oximetry 100 100 Oxygen Delivery Room Air 06/12/24 17:58 06/12/24 18:55 06/12/24 19:41 Temperature 36.3 C L Pulse Rate 70 81 81 Respiratory Rate 16 16 16 Blood Pressure 117/80 129/79 124/69 Pulse Oximetry 100 99 100 Oxygen Delivery 06/12/24 19:50 06/12/24 20:00 06/12/24 22:00 Temperature Pulse Rate 81 90 67 Respiratory Rate 16 Blood Pressure Pulse Oximetry 100 Oxygen Delivery Room Air 06/12/24 23:42 06/12/24 23:58 06/13/24 00:00 Temperature 36.4 C Pulse Rate 60 51 L 55 L Respiratory Rate 14 14 Blood Pressure 112/61 Pulse Oximetry 100 100 Oxygen Delivery Room Air 06/13/24 02:00 06/13/24 03:45 06/13/24 03:46 Temperature 36.3 C L Pulse Rate 55 L 59 L 63 Respiratory Rate 14 14 Blood Pressure 111/71 Pulse Oximetry 100 98 Oxygen Delivery Room Air 06/13/24 04:00 06/13/24 06:00 06/13/24 07:35 Temperature 36.6 C Pulse Rate 58 L 53 L 61 Respiratory Rate 14 Blood Pressure 121/82 Pulse Oximetry 100 Oxygen Delivery Exam 2 Const: General: comfortable and no acute distress Other: Very pleasant man appearing a bit younger than stated age no distress of any kind HENMT: Mouth: Yes moist mucous membranes Eyes: Sclera: sclerae normal Pupils: Equal, round and reactive pupils present Neck: Neck: supple and no JVD Resp: Effort & Inspection: normal respiratory effort Auscultation: clear to auscultation bilaterally Cardio: Rate: regular rate Rhythm: regular rhythm Other: Heart sounds are normal no murmur gallop or rub GI: GI Palp: Yes Soft to palpation Auscultation: normal bowel sounds Skin: General skin exam: normal color Neuro: Other: Alert and oriented x3 Extrem: Other: No edema, normal perfusion Results Labs and Meds 06/12/24 12:27 06/13/24 03:49 Lab results: Cardiac Enzymes 06/12/24 06/12/24 06/12/24 Range/Units 12:27 15:20 19:50 AST 32 (17-59) U/L Troponin I < 0.012 < 0.012 < 0.012 (0.000-0.034) ng/mL Coagulation 06/12/24 Range/Units 12:27 PT 13.6 (11.1-14.7) Seconds APTT 25.7 (22.3-36.8) Seconds Lipids 06/13/24 Range/Units 03:49 Triglycerides 101 (<150) mg/dL Cholesterol 133 (0-200) mg/dL CBC 06/12/24 Range/Units 12:27 WBC 7.0 (4.5-10.0) K/mm3 RBC 4.47 L (4.6-6.20) M/mm3 Hgb 15.2 (14.0-18.0) g/dL Hct 42.9 (42.0-52.0) % Plt Count 217 (150-375) k/mm3 Lymph # (Auto) 2.17 (0.9-3.2) K/mm3 [place] # (Auto) 0.6 (0.1-0.6) K/mm3 Eos # (Auto) 0.4 H (0-0.3) K/mm3 Baso # (Auto) 0.1 (0.0-0.1) K/mm3 Comprehensive Metabolic Panel 06/12/24 06/13/24 Range/Units 12:27 03:49 Sodium 142 137 (137-145) mmol/L Potassium 4.4 4.0 (3.4-5.0) mmol/L Chloride 103 103 (98-107) mmol/L Carbon Dioxide 31 H 31 H (22-30) mmol/L BUN 16 16 (9-20) mg/dL Creatinine 0.82 0.84 (0.7-1.3) mg/dL Glucose 120 H 91 (65-110) mg/dL Calcium 9.3 8.6 (8.4-10.2) mg/dL AST 32 (17-59) U/L ALT 24 (6-50) U/L Alkaline Phosphatase 78 (38-126) U/L Total Protein 7.0 (6.3-8.2) g/dL Albumin 4.5 (3.5-5.1) g/dL Intake and Output 06/12/24 06/13/24 06/13/24 23:59 07:59 15:59 Intake Total 450 Balance 450 Intake: Oral 450 Other: # Unmeasured Voids 1 Patient Weight 06/13/24 23:59 Weight 78.8 kg
--- NOTE | 2024-06-13 08:22 | P.PNIM_ITS ---
Progress Note: A&P Assessment and Plan (1) Chest pain: Code(s): R07.9 - Chest pain, unspecified Status: Acute (2) Essential (primary) hypertension: Code(s): I10 - Essential (primary) hypertension Status: Chronic (3) Hyperlipidemia: Qualifiers: Hyperlipidemia type: unspecified Qualified Code(s): E78.5 - Hyperlipidemia, unspecified Code(s): E78.5 - Hyperlipidemia, unspecified Status: Chronic Plan The patient presented to the emergency department for evaluation of chest pain. Chest pain Labs, imaging, EKG, and all reports were personally reviewed. Initial troponin was normal an EKG shows some nonspecific findings atypical for cardiac pain, awakened from sleep that night with the pain which could be musculoskeletal in etiology, perhaps costochondritis, Pulmonary embolism and GI etiologies seem less likely. risk factors for heart disease in the ED physician Serial troponin negative consulted Cardiology for their opinion. Appreciate cardiology consultation, no further cardiac workup. Essential hypertension Blood pressures were reviewed and they are stable. Check fasting glucose 91, A1c 5.3 Not consistent with diabetes Subjective Date/time seen: 06/13/24 08:22 Interval history: I saw exam patient today. Patient denies chest pain, palpitation, shortness breast, patient also denies headache, lightheadedness, abdomen pain, nausea vomiting diarrhea dysuria. Telemetry monitoring overnight shows no ischemia, troponin negative overnight. Patient is afebrile, blood pressure stable, no O2 desaturation room air Exam Narrative: GENERAL: Pleasant, in no acute distress. Well-nourished. - EYES: EOMI. Anicteric. - HENT: Moist mucous membranes. - LUNGS: Clear to auscultation bilateral ly, no wheezing, rhonchi, or rales. - CARDIOVASCULAR: Regular rate and rhyth m. No murmur. No JVD. - ABDOMEN: Soft, non-tender and non-dist ended. No palpable masses. - EXTREMITIES: No edema. Peripheral puls es 2+. Non-tender. - NEUROLOGIC: No focal neurological defi cits. CN II-XII grossly intact. - PSYCHIATRIC: Awake, Alert and oriented x 3. Appropriate mood and affect. - SKIN: No rashes or lesions. Warm. - LYMPH: No cervical lymphadenopathy. Objective Data Vital Signs Vital Signs: Vital Signs - 24 hr 06/12/24 12:24 06/12/24 14:21 06/12/24 14:24 Temperature 97.9 F Pulse Rate 80 69 Respiratory Rate 14 16 Blood Pressure 104/71 124/74 Pulse Oximetry 100 100 Oxygen Delivery Room Air 06/12/24 17:58 06/12/24 18:55 06/12/24 19:41 Temperature 97.4 F L Pulse Rate 70 81 81 Respiratory Rate 16 16 16 Blood Pressure 117/80 129/79 124/69 Pulse Oximetry 100 99 100 Oxygen Delivery 06/12/24 19:50 06/12/24 20:00 06/12/24 22:00 Temperature Pulse Rate 81 90 67 Respiratory Rate 16 Blood Pressure Pulse Oximetry 100 Oxygen Delivery Room Air 06/12/24 23:42 06/12/24 23:58 06/13/24 00:00 Temperature 97.6 F Pulse Rate 60 51 L 55 L Respiratory Rate 14 14 Blood Pressure 112/61 Pulse Oximetry 100 100 Oxygen Delivery Room Air 06/13/24 02:00 06/13/24 03:45 06/13/24 03:46 Temperature 97.4 F L Pulse Rate 55 L 59 L 63 Respiratory Rate 14 14 Blood Pressure 111/71 Pulse Oximetry 100 98 Oxygen Delivery Room Air 06/13/24 04:00 06/13/24 06:00 06/13/24 07:35 Temperature 98 F Pulse Rate 58 L 53 L 61 Respiratory Rate 14 Blood Pressure 121/82 Pulse Oximetry 100 Oxygen Delivery Intake/Output Intake/Output: Intake & Output 06/10/24 06/11/24 06/12/24 06/13/24 23:59 23:59 23:59 23:59 Intake Total 450 Balance 450 Meds/Results Medications: Active Medications Generic Name Dose Route Start Last Admin Trade Name Freq PRN Reason Stop Dose Admin Acetaminophen 650 mg 06/12/24 19:31 Acetaminophen 325 Mg Tablet PO Q6H PRN Mild Pain (1-3) or Fever Atorvastatin Calcium 20 mg 06/13/24 21:00 Atorvastatin 20 Mg Tablet PO QHS [facility] Donepezil HCl 5 mg 06/13/24 09:00 Donepezil Hcl 5 Mg Tablet PO DAILY [facility] Duloxetine HCl 60 mg 06/13/24 09:00 Duloxetine Hcl 60 Mg Capsule.Dr PO DAILY [facility] Enoxaparin Sodium 40 mg 06/13/24 09:00 Enoxaparin 40 Mg/0.4 Ml Syringe SUB-Q DAILY [facility] Nitroglycerin 0.4 mg 06/12/24 17:16 Nitroglycerin Sl 0.4 Mg Tablet SUBLINGUAL Q5MIN PRN Chest Pain Ondansetron HCl 4 mg 06/12/24 17:16 Ondansetron Inj 4 Mg/2 Ml Vial IV PUSH Q4H PRN Nausea Valsartan 160 mg 06/13/24 09:00 Valsartan 160 Mg Tablet PO DAILY [facility] Radiology Results: ITS Impressions Chest X-Ray 06/12/24 12:50 IMPRESSION: 1. No acute cardiopulmonary disease. Labs Labs: Laboratory Results - last 24 hr 06/12/24 06/12/24 06/12/24 12:26 12:27 15:20 WBC 7.0 RBC 4.47 L Hgb 15.2 Hct 42.9 MCV 96.0 MCH 34.0 MCHC 35.4 RDW 11.7 Plt Count 217 MPV 9.8 Immature Gran % (Auto) 0.3 Neut % (Auto) 54.1 Lymph % (Auto) 31.0 [place] % (Auto) 8.6 H Eos % (Auto) 5.1 H Baso % (Auto) 0.9 Lymph # (Auto) 2.17 [place] # (Auto) 0.6 Eos # (Auto) 0.4 H Baso # (Auto) 0.1 Abs Immat Gran (auto) 0.02 Absolute Neuts (auto) 3.8 Absolute Nucleated RBC 0.000 Nucleated RBC % 0.0 PT 13.6 INR 1.0 APTT 25.7 D-Dimer 0.36 Sodium 142 Potassium 4.4 Chloride 103 Carbon Dioxide 31 H Anion Gap 8 BUN 16 Creatinine 0.82 Estim Creat Clear Calc 76 Estimated GFR > 60 Glucose 120 H Hemoglobin A1c Calcium 9.3 Magnesium 1.9 Total Bilirubin 0.9 AST 32 ALT 24 Alkaline Phosphatase 78 Troponin I < 0.012 < 0.012 Total Protein 7.0 Albumin 4.5 Triglycerides Cholesterol LDL Cholesterol Direct HDL Direct Lipase 92 06/12/24 06/13/24 19:50 03:49 WBC RBC Hgb Hct MCV MCH MCHC RDW Plt Count MPV Immature Gran % (Auto) Neut % (Auto) Lymph % (Auto) [place] % (Auto) Eos % (Auto) Baso % (Auto) Lymph # (Auto) [place] # (Auto) Eos # (Auto) Baso # (Auto) Abs Immat Gran (auto) Absolute Neuts (auto) Absolute Nucleated RBC Nucleated RBC % PT INR APTT D-Dimer Sodium 137 Potassium 4.0 Chloride 103 Carbon Dioxide 31 H Anion Gap 3 L BUN 16 Creatinine 0.84 Estim Creat Clear Calc 76 Estimated GFR > 60 Glucose 91 Hemoglobin A1c 5.3 Calcium 8.6 Magnesium 1.9 Total Bilirubin AST ALT Alkaline Phosphatase Troponin I < 0.012 Total Protein Albumin Triglycerides 101 Cholesterol 133 LDL Cholesterol Direct 61 HDL Direct 47 Lipase
--- NOTE | 2024-06-13 08:26 | PM.DS ---
DS: Admitting Diagnosis Discharge Date 06/13/24 Admitting Diagnosis Chest pain DS: Discharge Diagnosis Discharge Diagnosis (1) Chest pain: Code(s): R07.9 - Chest pain, unspecified Status: Acute (2) Essential (primary) hypertension: Code(s): I10 - Essential (primary) hypertension Status: Chronic (3) Hyperlipidemia: Qualifiers: Hyperlipidemia type: unspecified Qualified Code(s): E78.5 - Hyperlipidemia, unspecified Code(s): E78.5 - Hyperlipidemia, unspecified Status: Chronic DS: Summary Hospital Course Hospital Course: Per H&P, This is a pleasant 74-year-old male with hypertension and hyperlipidemia who presented to the emergency department via private vehicle for evaluation; I think I had a heart attack on Tuesday. The patient provides the following history. Tuesday afternoon he was shoveled and did not have any issues. That night he was awakened from sleep with a heaviness in the substernal region associated with shortness of breath. It lasted for several hours before resolving without intervention. He has never had similar symptoms and he has not had a recurrence of his symptoms since that time. He apparently spoke with his and children about it today in the encouraged him to come in for evaluation. Again, he denies that the symptoms occurred while he was shoveling and he has not had any exertional chest pain. He denies indigestion, bloating, belching, nausea, and vomiting. He also denies syncope, near syncope, cough, lower extremity edema, and calf pain. In the ED: He was afebrile on arrival with stable vital signs. CMP and CBC were pretty unremarkable though is random glucose was a bit elevated at 120. Initial troponin was negative. EKG showed sinus bradycardia nonspecific T-wave abnormalities. Chest x-ray was clear. He was given aspirin 324 mg is being admitted in this setting for close monitoring and Cardiology consultation. The following med issues have been addressed during hospitalization Chest pain Labs, imaging, EKG, and all reports were personally reviewed. Initial troponin was normal an EKG shows some nonspecific findings atypical for cardiac pain, awakened from sleep that night with the pain which could be musculoskeletal in etiology, perhaps costochondritis, Pulmonary embolism and GI etiologies seem less likely. risk factors for heart disease in the ED physician Serial troponins negative consulted Cardiology for their opinion. Appreciate cardiology consultation, no further cardiac workup. Essential hypertension Blood pressures were reviewed and they are stable. Continue home medication Diovan 160 mg p.o. Check fasting glucose 91, A1c 5.3 Not consistent with diabetes Hospital course uneventful, patient's condition is stable at discharge Time Spent with Patient Time attestation: Total time spent providing and/or coordinating discharge services: Exam Narrative: GENERAL: Pleasant, in no acute distress. Well-nourished. - EYES: EOMI. Anicteric. - HENT: Moist mucous membranes. - LUNGS: Clear to auscultation bilaterally, no wheezing, rhonchi, or rales. - CARDIOVASCULAR: Regular rate and rhythm. No murmur. No JVD. - ABDOMEN: Soft, non-tender and non-distended. No palpable masses. - EXTREMITIES: No edema. Peripheral pulses 2+. Non-tender. - NEUROLOGIC: No focal neurological deficits. CN II-XII grossly intact. - PSYCHIATRIC: Awake, Alert and oriented x 3. Appropriate mood and affect. - SKIN: No rashes or lesions. Warm. - LYMPH: No cervical lymphadenopathy. DS: Data Data Completed and Pending Labs on day of discharge: Labs from last 24 hours 06/13/24 06/12/24 06/12/24 03:49 19:50 15:20 WBC RBC Hgb Hct MCV MCH MCHC RDW Plt Count MPV Immature Gran % (Auto) Neut % (Auto) Lymph % (Auto) [place] % (Auto) Eos % (Auto) Baso % (Auto) Lymph # (Auto) [place] # (Auto) Eos # (Auto) Baso # (Auto) Abs Immat Gran (auto) Absolute Neuts (auto) Absolute Nucleated RBC Nucleated RBC % PT INR APTT D-Dimer Sodium 137 Potassium 4.0 Chloride 103 Carbon Dioxide 31 H Anion Gap 3 L BUN 16 Creatinine 0.84 Estim Creat Clear Calc 76 Estimated GFR > 60 Glucose 91 Hemoglobin A1c 5.3 Calcium 8.6 Magnesium 1.9 1.9 Total Bilirubin AST ALT Alkaline Phosphatase Troponin I < 0.012 < 0.012 Total Protein Albumin Triglycerides 101 Cholesterol 133 LDL Cholesterol Direct 61 HDL Direct 47 Lipase 06/12/24 06/12/24 12:27 12:26 WBC 7.0 RBC 4.47 L Hgb 15.2 Hct 42.9 MCV 96.0 MCH 34.0 MCHC 35.4 RDW 11.7 Plt Count 217 MPV 9.8 Immature Gran % (Auto) 0.3 Neut % (Auto) 54.1 Lymph % (Auto) 31.0 [place] % (Auto) 8.6 H Eos % (Auto) 5.1 H Baso % (Auto) 0.9 Lymph # (Auto) 2.17 [place] # (Auto) 0.6 Eos # (Auto) 0.4 H Baso # (Auto) 0.1 Abs Immat Gran (auto) 0.02 Absolute Neuts (auto) 3.8 Absolute Nucleated RBC 0.000 Nucleated RBC % 0.0 PT 13.6 INR 1.0 APTT 25.7 D-Dimer 0.36 Sodium 142 Potassium 4.4 Chloride 103 Carbon Dioxide 31 H Anion Gap 8 BUN 16 Creatinine 0.82 Estim Creat Clear Calc 76 Estimated GFR > 60 Glucose 120 H Hemoglobin A1c Calcium 9.3 Magnesium Total Bilirubin 0.9 AST 32 ALT 24 Alkaline Phosphatase 78 Troponin I < 0.012 Total Protein 7.0 Albumin 4.5 Triglycerides Cholesterol LDL Cholesterol Direct HDL Direct Lipase 92 Discharge Plan Discharge Attending physician on discharge: Destiney Martínez Consulting providers: Catalino Neal Discharging Clinician: Destiney Martínez Anticipated Discharge Date/Time: 06/13/24 11:18 Patient Disposition: Home, Self-Care Activity: as tolerated Diet: as tolerated and heart healthy Patient Instructions: Antibiotic Form, Enoxaparin (By injection) Patient Language: Amharic Stand Alone Forms: General Discharge Information Follow-up/Referrals: Catalino Neal MD [Physician] - (Patient needs call manager [employer] for scheduled follow-up appointment) Arina Teixeira MD [Primary Care Provider] - (Patient needs to see PCP in 1 week) Discharge Medications: New aspirin 81 mg capsule 81 mg PO DAILY Qty: 60 0RF Continued duloxetine 60 mg capsule,delayed release(DR/EC) 60 mg PO DAILY donepezil 5 mg tablet 5 mg PO DAILY valsartan 160 mg tablet 160 mg PO DAILY Qty: 90 1RF atorvastatin 20 mg tablet 20 mg PO QHS Qty: 90 1RF Date of admission: 06/12/24 17:17 Primary Care Provider: Arina Teixeira Admitting Provider: Destiney Martínez Attending physician on admission: Destiney Martínez Condition: Stable
[2024-06-13] MEDS: DONEPEZIL HCL 5 MG TABLET PO (09:41)
[2024-06-13] MEDS: DULoxetine HCL 60 MG CAPSULE.DR PO (09:41)
[2024-06-13] MEDS: VALSARTAN 160 MG TABLET PO (09:41)
[2024-06-13] MEDS: ENOXAPARIN 40 MG/0.4 ML SYRINGE SUB-Q (09:41)
== END 2024-06-13 13:00 | disposition home or self-care (01) ==
LOC: ANHED 14:57 → ANHIMU 18:03
PROVIDERS: Emergency Medicine; Physician Assistant; Admitting Provider Hospitalist; Emergency Provider Student in an Organized Health Care Education/Training Program; PCP Family Medicine; Visit Provider Hospitalist
DX: R07.9 Chest pain, unspecified (principal); I10 Essential (primary) hypertension; E78.5 Hyperlipidemia, unspecified; J44.9 Chronic obstructive pulmonary disease, unspecified; R29.898 Other symptoms and signs involving the musculoskeletal system; U09.9 Post COVID-19 condition, unspecified; F98.8 Other specified behavioral and emotional disorders with onset usually occurring in childhood and adolescence; N52.9 Male erectile dysfunction, unspecified; E55.9 Vitamin D deficiency, unspecified; G30.9 Alzheimer's disease, unspecified; F02.80 Dementia in other diseases classified elsewhere, unspecified severity, without behavioral disturbance, psychotic disturbance, mood disturbance, and anxiety; F33.9 Major depressive disorder, recurrent, unspecified; M54.16 Radiculopathy, lumbar region; Z79.899 Other long term (current) drug therapy; Z85.46 Personal history of malignant neoplasm of prostate; Z88.0 Allergy status to penicillin
CPT/HCPCS: 36415; 71046; 80048; 80053; 80061; 83036; 83690; 83735; 84484; 85025; 85380; 85610; 85730; 93005; 96372; 96374; 99285; A9270; G0378; J1650

== ENCOUNTER 2024-11-21 12:55 | Outpatient (CLI) | payer MEDICARE, OTHER, SELFPAY ==
--- NOTE | ~2024-11-21 | MR_ITS ---
MRI of the lumbar spine Clinical History: Radiculopathy Technique: Axial T2-weighted images, and sagittal T1-weighted, T2-weighted, and T2 fat-sat images wer e acquired. Findings: There is no fracture in the lumbar spine. Minimal grade 1 retrolisthesis of L2 over L3, and of L3 over L4 present. No suspicious bone marrow signal abnormality. At L1-L2, there is mild to moderate degenerative distended. No significant disc bulge or herniation. No spinal canal stenosis or neural foraminal narrowing. At L2-L3, there is disc desiccation with mild degenerative spurring. There is minimal disc bulge and mild facet hypertrophy. No spinal canal stenosis. Probable minimal right neural foraminal narrowing. Left neural foramen preserved. At L3-L4, there is mild to moderate degenerative distended. There is disc bulge and moderate facet ar thropathy. There is mild central canal stenosis. There is severe right neural foraminal narrowing, an d mild to moderate left neural foraminal narrowing. At L4-L5, there is mild degenerative tearing. There is mild disc bulge and mild to moderate facet art hropathy. There is minimal central canal stenosis. There is minimal bilateral neural foraminal narrow ing. At L5-S1, there is moderate degenerative disc narrowing. There is mild to moderate facet arthropathy. No central canal stenosis. There is moderate to severe bilateral neural foraminal narrowing. Paravertebral soft tissues are unremarkable. Impression: Moderate degenerative spondylosis, as detailed above, with multilevel neural foraminal narrowing. Reviewed, dictated and finalized at [facility] [place]. Impression: Moderate degenerative spondylosis, as detailed above, with multilevel neural fo raminal narrowing.
== END 2024-11-21 12:56 | disposition home or self-care (01) ==
LOC: GOSHIMG 12:55
PROVIDERS: PCP Family Medicine; Visit Provider Nurse Practitioner Family
DX: M47.26 Other spondylosis with radiculopathy, lumbar region (principal)
CPT/HCPCS: 72148